=== PATIENT | male | born 1980 | race Caucasian/White ===

== ENCOUNTER 2017-04-10 11:57 | Emergency (ER) | payer MEDICAID, OTHER ==
[2017-04-10] MEDS: NAPROXEN 250 MG TABLET PO ONE (13:00)
[2017-04-10 13:03] VITALS: BP 130/80
--- NOTE | 2017-04-10 13:09 | ED Physician Documentation ---
Low Back Pain - HISTORIAN Historian: patient - HPI Stated Complaint: back pain Chief Complaint: Low Back Pain/ Injury History: history of chronic pain:, back pain Onset: days ago Duration: continues in ED Context: fall ("daija my back") Where: home Severity: severe Further Comments: yes (36 year old male patient from [place] presents to the ER with low back pain, patient reports he fell off his 4 dodge yesterday and daija his back. Patient called ER 3 times for driving directions from [place] prior to arrival. 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.) - ROS CONST: no problems CVS/RESP: none EYES/ENT: none MS/SKIN/LYMPH: neck pain, back pain Neuro/Psych: none GI/: denies: abdominal pain, black stools - PAST HX Past History: back pain (chronic) Surgeries/Procedures: other (C-spine - patient cannot recall exact surgery) Allergies/Adverse Reactions: Allergies Allergy/AdvReac Type Severity Reaction Status Date / Time No Known Allergies Allergy Unverified 04/10/17 12:20 Home Medications: Ambulatory Orders Medication Instructions Recorded NK [NK] 04/10/17 - SOCIAL HX Smoking History: cigarettes - FAMILY HX Family History: denies: none - VITAL SIGNS Vital Signs: Vital Signs Temp Pulse Resp BP Pulse Ox 92 H 14 133/82 96 04/10/17 12:10 04/10/17 12:10 04/10/17 12:10 04/10/17 12:10 - REVIEWED ASSESSMENTS Nursing Assessment Reviewed: Yes Vitals Reviewed: Yes Progress - Progress Progress: Patient fell asleep during ROS and physical exam, speech slow and slurred. Patient denies taking any pain medication today or being seen another ER today. States he does not have a primary care doctor, "between doctors". Patient requested refill of percocet and diazepam to RN. Did not request refill to this provider. Offered injection of toradol, patient refused IM injection. UDS not available at this time. Will not prescribe narcotic for safety due to patient's presentation. ED Results Lab/Radiology - Orders Orders: ED Orders Category Date Time Status Naproxen [Naprosyn] Med 04/10/17 12:47 Once 500 mg PO NOW ONE Low Back Pain/Injury - Physical Exam General Appearance: mild distress EENT: eye inspection normal, GAIL Resp/CVS: chest non-tender, breath sounds nml, heart sounds nml, no resp. distress, lungs clear, reg. rate & rhythm Back: non-tender, painless ROM Neuro/Psych: oriented x3, motor nml, sensation nml, depressed mood/affect Skin: normal color, warm/dry, NR, INT, PAL, DR Extremities: non-tender, normal range of motion, no evidence of injury, no edema , J, [employer]YING SUPERVISOR Discharge Clincal Impression: Chronic back pain Qualifiers: Back pain location: low back pain Back pain laterality: bilateral Sciatica presence: without sciatica Qualified Code(s): M54.5 - Low back pain; G89.29 - Other chronic pain Referrals: Primary Doctor,No [Primary Care Provider] - 2 Days Home Medications: Ambulatory Orders NK [NK] 04/10/17 Condition: Stable Disposition: 01 HOME, SELF-CARE Decision to Admit: NO Decision Time: 13:08
== END 2017-04-10 13:01 | disposition home or self-care (01) ==
LOC: ED 11:57
DX: M54.5 Low back pain (principal); G89.29 Other chronic pain
CPT/HCPCS: 99283